=== PATIENT | male | born 1990 | race Asian ===

== ENCOUNTER 2023-04-21 15:14 | Emergency (ER) | payer SELFPAY ==
[~2023-04-21] VITALS: Ht 165.1 cm; Wt 68.2 kg
[2023-04-21 15:56] VITALS: TEMP 98.6
[2023-04-21] MEDS ORDERED: BACITRACIN ZINC/POLYMYXIN B 14.2 GM OINTMENT TP ONE (19:00)
[2023-04-21] MEDS ORDERED: PERTUSS(ACELL),DIPH,TET VAC/PF 0.5 ML SYRINGE IM. ONE (19:30)
[2023-04-21 21:06] VITALS: BP 137/64; PULSE 70; RESP 17
[2023-04-21] MEDS ORDERED: BUPIVACAINE HCL 0.25% 50 ML VIAL ID ONE (21:45)
[2023-04-21] MEDS ORDERED: GELATIN SPONGE,ABSORBABLE 12-7 MM TP ONE (21:45)
[2023-04-21] MEDS ORDERED: LIDOCAINE 1% 10 ML VIAL ID ONE (22:00)
[2023-04-21] MEDS ORDERED: SILVER NITRATE APPLICATOR 1 EA STICK TP ONE ×2 (22:15)
== END 2023-04-21 23:03 | disposition home or self-care (01) ==
LOC: EMS 15:17
DX: S61.216A Laceration without foreign body of right little finger without damage to nail, initial encounter (principal); X58.XXXA Exposure to other specified factors, initial encounter; Y93.89 Activity, other specified; Y92.89 Other specified places as the place of occurrence of the external cause; Y99.8 Other external cause status
CPT/HCPCS: 99284; 90715; 90471; J3490 ×2

== ENCOUNTER 2023-06-18 22:58 | Emergency (ER) | payer SELFPAY ==
[~2023-06-18] VITALS: Ht 165.1 cm; Wt 68.2 kg
[2023-06-18 22:59] VITALS: TEMP 98.5
[2023-06-19] MEDS ORDERED: BACITRACIN 0.9 GM PACKET OINTMENT TP ONE
[2023-06-19] MEDS ORDERED: CEPH-558 PO (00:25)
[2023-06-19] MEDS ORDERED: BACI28.410 TP (00:29)
[2023-06-19 00:31] VITALS: BP 140/97; PULSE 88; RESP 14
== END 2023-06-19 00:40 | disposition home or self-care (01) ==
LOC: EMS 22:58
DX: S61.306A Unspecified open wound of right little finger with damage to nail, initial encounter (principal); X58.XXXA Exposure to other specified factors, initial encounter; Y93.89 Activity, other specified; Y92.89 Other specified places as the place of occurrence of the external cause; Y99.8 Other external cause status
CPT/HCPCS: 99283